=== PATIENT | male | born 1970 | race Hispanic/Latino ===

== ENCOUNTER 2018-03-10 16:24 | Inpatient (IN) | payer OTHER ==
[~2018-03-10] VITALS: Ht 167.6 cm; Wt 63.5 kg
[2018-03-10 19:04] LABS: ABSOLUTE BASOPHIL COUNT 0 /CUMM (0.0-0.2); ABSOLUTE EOSINOPHIL COUNT 0.2 /CUMM (0.0-0.7); ABSOLUTE GRANULOCYTE CT 2.1 /CUMM (1.4-6.5); ABSOLUTE LYMPH COUNT 2.8 /CUMM (1.2-3.4); ABSOLUTE MONOCYTE COUNT 0.4 /CUMM (0.10-0.60); BASOPHIL % 0.7 % (0.0-2.0); GRANULOCYTE % 38.8 % (42.2-75.2); HEMATOCRIT 42.1 % (42-52); MEAN CORPUSCULAR HGB 34.7 PG (27.0-31.0); MEAN CORPUSCULAR HGB CONC 34.2 G/DL (33.0-37.0); MEAN CORPUSCULAR VOLUME 101.4 FL (80.0-94.0); MEAN PLATELET VOLUME 8.4 FL (7.4-10.4); PLATELET COUNT 163 /CUMM (130-400); RBC DISTRIBUTION WIDTH 14.2 % (11.5-14.5); RED BLOOD CELL CT 4.15 /CUMM (4.70-6.10); WHITE BLOOD CELL COUNT 5.5 /CUMM (4.8-10.8)
[2018-03-10 19:30] VITALS: BP 136/69
--- NOTE | 2018-03-10 19:36 | ED GENERAL ADULT ---
History of Present Illness General Chief Complaint: ETOH/Drug Related Complaint Stated Complaint: ETOH DETOX Source: patient Exam Limitations: no limitations Vital Signs & Intake/Output Vital Signs & Intake/Output Vital Signs Date Time Temp Pulse Resp B/P B/P Pulse O2 O2 Flow FiO2 Mean Ox Delivery Rate 03/11 0137 Room Air 03/11 0030 97.0 76 18 118/70 03/10 2230 98.8 88 16 112/70 03/10 2230 98.8 88 16 112/70 100 Room Air 03/10 2130 98.0 78 18 111/75 03/10 2130 98.8 78 18 111/75 98 Room Air 03/10 1930 97.9 80 18 136/69 03/10 1928 Room Air Room Air 03/10 192 97.8 80 18 136/69 99 Room Air 03/10 1708 98.3 82 17 151/94 97 Room Air ED Intake and Output 03/11 0000 03/10 1200 Intake Total 0 Output Total Balance 0 Intake, Oral 0 Allergies Coded Allergies: No Known Allergies (03/10/18) Reconcile Medications Acamprosate Calcium 333 MG TABLET.DR 333 MG PO TID ALCOHOL DEPENDENCE ( Reported) Aripiprazole 10 MG TABLET 10 MG PO DAILY ATYPICAL ANTIPSYCHOTIC (Reported) Mirtazapine 15 MG TABLET 15 MG PO DAILY DEPRESSION (Reported) Prazosin HCl 1 MG CAPSULE 1 MG PO DAILY HTN (Reported) Triage Note: PT TO ED SEEKING ETOH DETOX. STATES DAILY HEAVY USE, LAST DRINK THIS AM. DENIES HX OF SEIZURE WITHDRAWAL. VITALS STABLE IN TRIAGE. ACCOMPANIED BY . DENIES SI/HI. STEADY GAIT. LUCHO HOLLAND IN TRIAGE FOR INITIAL EVAL. Triage Nurses Notes Reviewed? yes Onset: Abrupt Duration: day(s): (1), constant, continues in ED, getting worse Timing: recent history Injury Environment: home Severity: moderate, severe HPI: 48-year-old male history of alcohol dependence presents requesting alcohol detox. Patient reports he has been drinking daily for several years. He reports that he drinks up to a half gallon of vodka daily. He states his last drink was 8:30 this morning he had 2 nIPs. He states he has never detox in the past she denies a history of withdrawal seizures. He notes that he recently was involved in an IOP that he was still drinking during well. He denies suicidal or homicidal ideation. He states he is not having any hallucinations no illicit drug use. He states currently he is on taking a sleeping medication that he does not know what it is. He states he's never been admitted for alcohol dependence in the past. He has no chest pain shortness of breath or any other symptoms. He currently reports a mild headache and feels shaky. (Jaun Guzman) Past History Travel History Traveled to [place] past 21 day No Medical History Any Pertinent Medical History? see below for history Surgical History Surgical History: non-contributory Psychosocial History What is your primary language Mongolian Tobacco Use: Current Daily Use Daily Tobacco Use Amount/Type: => 5 Cigarettes daily ETOH Use: heavy use Illicit Drug Use: denies illicit drug use Family History Hx Contributory? No (Jaun Guzman) Review of Systems Review of Systems Constitutional: Reports: no symptoms. EENTM: Reports: no symptoms. Respiratory: Reports: no symptoms. Cardiovascular: Reports: no symptoms. GI: Reports: no symptoms. Genitourinary: Reports: no symptoms. Musculoskeletal: Reports: no symptoms. Skin: Reports: no symptoms. Neurological/Psychological: Reports: see HPI, anxiety, headache. Hematologic/Endocrine: Reports: no symptoms. Immunologic/Allergic: Reports: no symptoms. All Other Systems: Reviewed and Negative (Jaun Guzman) Physical Exam Physical Exam General Appearance: well developed/nourished, no apparent distress, alert, awake Head: atraumatic, normal appearance Eyes: Bilateral: normal appearance, PERRL, EOMI. Ears, Nose, Throat: hearing grossly normal Neck: normal inspection, supple, full range of motion Respiratory: normal breath sounds, chest non-tender, no respiratory distress, lungs clear Cardiovascular: regular rate/rhythm, normal peripheral pulses Peripheral Pulses: 2+ radial (R), 2+ radial (L) Gastrointestinal: soft, non-tender Back: normal inspection, normal range of motion, no vertebral tenderness Extremities: normal inspection, normal range of motion, no edema Neurologic/Psych: no motor/sensory deficits, awake, alert, oriented x 3, normal gait, normal mood/affect Skin: intact, normal color, warm/dry Lymphatic: no anterior cervical kinjal Core Measures ACS in differential dx? No CVA/TIA Diagnosis: No Sepsis Present: No Sepsis Focused Exam Completed? No (Jaun Guzman) Progress Differential Diagnoses I considered the following diagnoses in my evaluation of the patient: [Alcohol intoxication, alcohol withdrawal, drug intoxication, drug withdrawal, electrolyte abnormality] Plan of Care: Orders Procedure Date/time Status Regular Diet 03/11 B Active MAGNESIUM 03/11 06 Active CBC WITHOUT DIFFERENTIAL 03/11 06 Active BASIC ELECTROLYTES PLUS BUN&CR 03/11 0600 Active Seizure Precautions 03/11 0141 Active Weight 03/11 0133 Complete Vital Signs 03/11 0133 Active Teach/Educate 03/11 013 Active Pain Treatment and Response 03/11 013 Active Nutritional Intake, Monitor 03/11 013 Active Isolation 03/11 013 Active Intake & Output 03/11 0133 Active Patient Care Conference 03/11 0133 Active Activity/Ambulation 03/11 013 Active Saline Lock 03/11 0028 Active Misc Message 03/11 0028 Active ED Holding Orders 03/11 0028 Active Admit to inpatient 03/11 0028 Active Vital Signs 03/11 0028 Active Lab Add-on Test 03/11 0003 Active CIWA 03/11 UNK Complete SOCIAL WORK CONSULT 03/11 UNK Active Pathway - chart 03/10 2357 Active House Staff 03/10 2357 Active Code Status 03/10 2357 Active Patient Data 03/10 2350 Active Add-on Test (ER Only) 03/10 223 Active CASE MANAGEMENT CONSULT 03/10 2126 Active Intake & Output 03/10 2016 Active PHOSPHORUS 03/10 1847 Complete MAGNESIUM 03/10 1847 Complete CIWA 03/10 1708 Active URINE DRUGS OF ABUSE 03/10 1708 Complete ETHANOL 03/10 1708 Complete COMPREHENSIVE METABOLIC PANEL 03/10 1708 Complete CBC WITHOUT DIFFERENTIAL 03/10 1708 Complete VTE Mechanical Prophylaxis 03/10 UNK Active Current Medications Sig/Savita Start time Last Medication Dose Stop Time Status Admin Enoxaparin Sodium 40 MG DAILY 03/11 900 AC (Lovenox) Folic Acid 1 MG DAILY 03/11 09 AC (Folic Acid) Multivitamins 1 TAB DAILY 03/11 900 AC (Theragran Vitamins) Nicotine 14 MG DAILY 03/11 900 UNVr (Nicotine Cq) Thiamine HCl 100 MG DAILY 03/11 900 AC (Vitamin B1) Omeprazole 40 MG DAILY AC 03/11 07 UNVr (Prilosec) Lorazepam 0 Q1P PRN 03/11 0030 AC 03/11 (Ativan) 0144 Lorazepam 1 MG Q6 03/10 2359 AC 03/11 (Ativan) 0030 Acetaminophen 650 MG Q6P PRN 03/10 2345 AC (Tylenol) Magnesium Sulfate 1 GM Q2H 03/10 2345 AC 03/11 (Mag Sulfate in D5) 03/11 0344 0042 Dextrose/Water 100 ML (D5W) Laboratory Tests 03/10/18 1919: Urine Opiates Screen < 100, Methadone Screen < 40, Barbiturate Screen < 60, Ur Phencyclidine Scrn < 6.00, Amphetamines Screen 345, U Benzodiazepines Scrn < 85, Urine Cocaine Screen < 50, Urine Cannabis Screen < 5.00 03/10/18 1847: Anion Gap 10, Estimated GFR > 60, BUN/Creatinine Ratio 11.1, Glucose 93, Calcium 9.5, Phosphorus 3.5, Magnesium 1.5 L, Total Bilirubin 0.7, AST 217 H, ALT 230 H, Alkaline Phosphatase 105, Total Protein 8.2, Albumin 4.5, Globulin 3.7, Albumin/Globulin Ratio 1.2, CBC w Diff NO MAN DIFF REQ, RBC 4.15 L, MCV 101.4 H, MCH 34.7 H, MCHC 34.2, RDW 14.2, MPV 8.4, Gran % 38.8 L, Lymphocytes % 50.0 , Monocytes % 7.5, Eosinophils % 3.0, Basophils % 0.7, Absolute Granulocytes 2.1 , Absolute Lymphocytes 2.8, Absolute Monocytes 0.4, Absolute Eosinophils 0.2, Absolute Basophils 0, Serum Alcohol 52.0 Patient is here requesting alcohol detox. He states he drinks every day up to half gallon of vodka last drink was this morning. He denies a history of withdrawal seizures no suicidal or homicidal ideation. Labs were ordered patient will be monitored with CIWA exams. Blood work shows an alcohol level of 52 initial CIWA level is 2. Patient will continue to be monitored. Remaining labs otherwise unremarkable other than a mild transaminitis. Repeat CIWA is now 15. Patient meets criteria for admission. 2 mg IV Ativan 2 mg by mouth Ativan ordered. Case management will get authorization for admission. Case discussed with Dr. Ramirez he agrees. Patient was SIGNED OUT to Dr. Ramirez pending case management anD admission Initial ED EKG: none Hand-Off Endorsed To: James URRUTIA,Richie Byrd Endorsed Time: 2310 Pending: other (CASE MANAGEMENT/ADMISSION) (Jaun Guzman) Departure Departure Disposition: STILL A PATIENT Condition: Stable Clinical Impression Primary Impression: Alcohol withdrawal Qualifiers: Complication of substance-induced condition: uncomplicated Qualified Code: F10.230 - Alcohol dependence with withdrawal, uncomplicated Referrals: Mj Seymour MD (PCP/Family) Departure Forms: Customer Survey General Discharge Information Admission Note Spoke With: Monroe Syed MD Documentation of Exam: Documentation of any treatments & extenuating circumstances including Concerns Regarding Discharge (functional status, medication knowledge or non-compliance, living conditions, etc.) that warrant an admission rather than observation: [ Patient has a CIWA score of 15 require IV Ativan serial labs case management social work consult. Premature discharge could result in seizure or ] (Jaun Guzman) Admission Note Spoke With: Mj Seymour MD Documentation of Exam: dr. seymour is the patient's PMD... discussed with dr. seymour who accepts patient. PA/COTTON WEIGHER Co-Sign Statement Statement: ED Attending supervision documentation- [x] I saw and evaluated the patient. I have also reviewed all the pertinent lab results and diagnostic results. I agree with the findings and the plan of care as documented in the PA's/COTTON WEIGHER's documentation. 03/11/18, 0:52am... pt with ciwa of 15, now approved for etoh detox protocol. stable for gen med. [] I have reviewed the ED Record and agree with the PA's/COTTON WEIGHER's documentation. [] Additions or exceptions (if any) to the PAs/COTTON WEIGHER's note and plan are summarized below: [] (James URRUTIA,Richie Byrd) Critical Care Note Critical Care Note Critical Care Time: non-applicable (Jaun Guzman)
[2018-03-10 20:18] VITALS: BP 136/69
[2018-03-10 21:30] VITALS: BP 111/75
[2018-03-10] MEDS ORDERED: PRAZOSIN HCL1 M1 PO (22:25)
[2018-03-10] MEDS ORDERED: ACAMPROSATE CA333 M1 PO (22:26)
[2018-03-10] MEDS ORDERED: ARIPIPRAZOLE10 M1 PO (22:28)
[2018-03-10] MEDS ORDERED: MIRTAZAPINE15 M2 PO (22:29)
[2018-03-10 22:30] VITALS: BP 112/70
--- NOTE | 2018-03-10 23:49 | History & Physical ---
Katie Burch 03/10/18 2348: General Information and HPI MD Statement: I have seen and personally examined CORIE MENDOZA and documented this H&P. The patient is a 48 year old M who presented with a patient stated chief complaint of [alcohol detox]. Source of Information: patient Exam Limitations: no limitations History of Present Illness: 48-year-old male with past medical history of alcohol abuse, presented to the emergency department today requesting alcohol detox. The patient has been abusing alcohol for many years now his last drink was at 8: 30 AM this morning. He drank 2 pints of vodka this morning. Patient reports being detoxed for alcohol last month in [facility]. He has never been in alcohol rehab. Reports IOP for alcohol. He denies alcohol withdrawal seizures, blacking out due to alcohol, chest pain, shortness of breath, nausea, or vomiting. He denies use of other recreational drugs. Allergies/Medications Allergies: Coded Allergies: No Known Allergies (03/10/18) Home Med list Acamprosate Calcium 333 MG TABLET.DR 333 MG PO TID ALCOHOL DEPENDENCE ( Reported) Aripiprazole 10 MG TABLET 10 MG PO DAILY ATYPICAL ANTIPSYCHOTIC (Reported) Mirtazapine 15 MG TABLET 15 MG PO DAILY DEPRESSION (Reported) Prazosin HCl 1 MG CAPSULE 1 MG PO DAILY HTN (Reported) Past History Travel History Traveled to [place] past 21 day No Medical History Cardiovascular: hypertension Psychiatric: depression Surgical History Surgical History: non-contributory Past Family/Social History Psychosocial History Where do you live? Home Services at Home: None Smoking Status: Current Everyday Smoker (HALF PPD FOR 42 YEARS) ETOH Use: heavy use Illicit Drug Use: denies illicit drug use Functional Ability ADLs Independent: dressing, eating, toileting, bathing. Ambulation: independent IADLs Independent: shopping, housework, finances, food prep, telephone, transportation , medication admin. Review of Systems Review of Systems Constitutional: Reports: see HPI. EENTM: Reports: no symptoms. Cardiovascular: Reports: no symptoms. Respiratory: Reports: no symptoms. GI: Reports: no symptoms. Genitourinary: Reports: no symptoms. Musculoskeletal: Reports: no symptoms. Skin: Reports: no symptoms. Neurological/Psychological: Reports: no symptoms. Hematologic/Endocrine: Reports: no symptoms. Immunologic/Allergic: Reports: no symptoms. All Other Systems: Reviewed and Negative Exam & Diagnostic Data Last 24 Hrs of Vital Signs/I&O Vital Signs Date Time Temp Pulse Resp B/P B/P Pulse O2 O2 Flow FiO2 Mean Ox Delivery Rate 03/11 0030 97.0 76 18 118/70 03/10 2230 98.8 88 16 112/70 03/10 2230 98.8 88 16 112/70 100 Room Air 03/100 98.0 78 18 111/75 03/10 213 98.8 78 18 111/75 98 Room Air 03/10 1930 97.9 80 18 136/69 03/10 1928 Room Air Room Air 03/10 192 97.8 80 18 136/69 99 Room Air 03/10 1708 98.3 82 17 151/94 97 Room Air Intake & Output 03/11 0800 03/11 0000 03/10 1600 Intake Total 0 Output Total Balance 0 Intake, Oral 0 Physical Exam General Appearance Alert, Oriented X3, Cooperative, No Acute Distress Skin No Rashes, No Breakdown, No Significant Lesion Skin Temp/Moisture Exam: Cool/Dry Sepsis Skin Exam (color): Normal for Ethnicity HEENT Atraumatic, PERRLA, EOMI, Mucous Membr. moist/pink Neck Supple, No JVD Cardiovascular Regular Rate, Normal S1, Normal S2, No Murmurs Lungs Clear to Auscultation, Normal Air Movement Abdomen Normal Bowel Sounds, Soft, No Tenderness, No Hepatospenomegaly, No Masses Neurological Normal Gait, Normal Speech, Strength at 5/5 X4 Ext, Normal Tone, Sensation Intact, Cranial Nerves 3-12 NL Extremities TREMORS BOTH HANDS Assessment/Plan Assessment: 48-year-old male with past medical history of alcohol abuse, presented to the emergency department today requesting alcohol detox. Problems: 1.alcohol withdrawal 2.transaminitis 3.macrocytosis 4.hypomagnesemia Assessment and plan: 1.alcohol withdrawal: The patient presents with alcohol withdrawal; his last drink was 2 pens of vodka this morning at 8:30 AM. tremors were present on examination. His alcohol level is 52.0. -Admit to general medical floor -Continue Ativan -Vitals every shift -IV fluids, thiamine p.o., multivitamins p.o., folate p.o. 2.transaminitis: His ALT is 230, AST 217. Likely due to alcohol abuse. -We will monitor his lfts -Ultrasound right upper quadrant 3.hypomagnesemia: The patient's magnesium level was 1.5 on admission. -Replete magnesium by MgSO4 1 g IV -Monitor magnesium levels 4.macrocytosis: Patient's hemoglobin is 14.4, RBC count 415, MCV 101.4, MCH 34.7. Macrocytosis is most likely due to alcohol abuse. -Check vitamin B and folate levels. -Give multivitamins, folic acid DVT prophylaxis: Enoxaparin 40 mg subcu Diet: Regular diet CODE STATUS: Full code As Ranked By This Provider Problem List: 1. Alcohol withdrawal Qualifiers Complication of substance-induced condition: uncomplicated Qualified Code: F10.230 - Alcohol dependence with withdrawal, uncomplicated Core Measures/Misc (03/29) Acute Coronary Syndrome ACS Diagnosis: No Congestive Heart Failure Congestive Heart Failure Diagnosis No Cerebrovascular Accident CVA/TIA Diagnosis: No VTE (View Protocol) VTE Risk Factors Age>40 No Mechanical VTE Prophylaxis d/t N/A MechProphylax Ordered No VTE Pharm Prophylaxis d/t NA PharmProphylax ordered Sepsis (View protocol) Sepsis Present: No If YES complete Sepsis Event Note If YES complete Sepsis Event Note Monroe Syed MD 03/11/18 0008: Core Measures/Misc (03/29) Sepsis (View protocol) If YES complete Sepsis Event Note If YES complete Sepsis Event Note Attending MD Review Statement Attending Statement Attending MD Statement: examined this patient, discuss w/resident/PA/CERTIFIED LOW VISION THERAPIST, agreed w/resident/PA/CERTIFIED LOW VISION THERAPIST, reviewed EMR data (avail) Attending Assessment/Plan: 48M PMH EtOH abuse, drinks 0.5 gallons of vodka per day, presents for detox. Initially intoxicated but now only with mild tremor and agitation, CIWA 15, with impending DT's likely given volume of alcohol consumption. Normal exam other than above at this time, vitals stable, labs show only mild transaminitis. No history of withdrawal before. Plan: Admit to general medicine, Ativan 1mg q6h PO and increase as necessary, Ativan PRN CIWA, repeat LFTs, monitor electrolytes , DVT PPx. Kendall Perez MD 03/11/18 0033: Core Measures/Misc (03/29) Sepsis (View protocol) If YES complete Sepsis Event Note If YES complete Sepsis Event Note Resident Review Statement Resident Statement: examined this patient, discussed with manager internal, reviewed EMR data (avail) Other Findings: 48 yo M with PMH hisotry of alcohol dependence, current smoker (1/2 PPD for almost 40 years) presented to the ED requesting for alcohol detox. The patient states that he has been drinking a gallon of vodka of a number of years now. His last drink was 8:30 this morning when he had 2 pints of vodka. He was admitted to [facility] last month for alcohol detox. Denies any history of alcohol withdrawal seizures. Denies any recreational drug use. His only medication at home consists of a sleeping pill of which he does not recall the name. He endorses headache but denies any shortness of breath or chest pain. ROS: significant for headache and exertional chest pain General Appearance: well developed/nourished, no apparent distress Head: atraumatic, normal appearance Eyes: bilateral normal appearance, PERRL Ears, Nose, Throat: normal hearing and speech Respiratory: normal breath sounds, chest non-tender, no respiratory distress Cardiovascular: regular rate/rhythm, normal S1, S2, no M/R/G Gastrointestinal: soft, non-tender Extremities: no edema Neurologic/Psych: awake, alert, oriented x 3, Skin: intact, normal color, warm/dry Labs are remarkable for macrocytosis (MCV 101.4), low magnesium and elevated AST /ALT. Blood alcohol level was 52. Assessment: 1. Alcohol Detox 2. Elevated LFTs Plan: * Admit patient to general medicine * Start PO Ativan 1mg q6 and IV Ativan per CIWA. Will taper Ativan rapidly. * Thiamine, Folic acid, Multivitamin * Monitor electrolytes and replete as needed * PO PPI * Nicotine patch * Social work consult * Diet: Regular * DVT Prophylaxis: SC Lovenox * Code: Full Code
[2018-03-11] VITALS (8 sets, daily range): BP systolic 92–146; BP diastolic 60–87
--- NOTE | 2018-03-11 07:25 | PN- Housestaff ---
Subjective Follow-up For: Alcohol detox Subjective: Patient seen and examined at bedside. He is complaining of tremor in hands. He said this is second time I am trying alcohol detox. Previously I was admitted to [facility] and I again left hospital AGAINST MEDICAL ADVICE and escape through the window. He denies fever, palpitation, chest pain, abdominal pain, diarrhea, constipation, burning micturition, numbness, tingling sensation in hands and feet. Review of Systems Constitutional: Reports: see HPI. Objective Last 24 Hrs of Vital Signs/I&O Vital Signs Date Time Temp Pulse Resp B/P B/P Pulse O2 O2 Flow FiO2 Mean Ox Delivery Rate 03/11 1437 98.2 74 18 118/76 97 Room Air 03/11 1052 98.5 83 18 92/60 96 Room Air 03/11 0700 98.4 66 18 110/68 97 Room Air 03/11 0203 98.1 73 20 122/80 96 03/11 0137 Room Air 03/11 0030 97.0 76 18 118/70 03/10 2230 98.8 88 16 112/70 03/10 2230 98.8 88 16 112/70 100 Room Air 03/10 2130 98.0 78 18 111/75 03/10 2130 98.8 78 18 111/75 98 Room Air 03/10 1930 97.9 80 18 136/69 03/10 1928 Room Air Room Air 03/10 1928 97.8 80 18 136/69 99 Room Air Intake & Output 03/11 1600 03/11 0800 03/11 0000 Intake Total 500 480 0 Output Total Balance 500 480 0 Intake, IV 0 Intake, Oral 500 480 0 Patient 140 lb Weight Weight Reported by Patient Measurement Method Physical Exam General Appearance: Alert, Oriented X3, Cooperative, No Acute Distress, Mild Distress, Moderate Distress, Severe Distress HEENT: Atraumatic, PERRLA, EOMI, Mucous Membr. moist/pink Neck: Supple, No JVD, No thryomegaly Lymphatic: Axillary nl, Cervical nl Cardiovascular: Normal S1, Normal S2, No Murmurs Lungs: Clear to Auscultation, Normal Air Movement Abdomen: Normal Bowel Sounds, Soft, No Tenderness, No Hepatospenomegaly, No Masses Neurological: Normal Gait, Normal Speech, Strength at 5/5 X4 Ext, Normal Tone, Sensation Intact, Cranial Nerves 3-12 NL, Reflexes 2+ Extremities: No Clubbing, No Cyanosis, No Edema, Normal Pulses, No Tenderness/ Swelling Assessment/Plan Assessment: 48M PMH EtOH abuse, drinks 0.5 gallons of vodka per day, presents for detox. Initially intoxicated but now only with mild tremor and agitation, CIWA 15, with impending DT's likely given volume of alcohol consumption. Admits to emergency for alcohol detox. At the time of presentation to emergency department labs are given below. Labs; WBC 3.9, hemoglobin 14.1, hematocrit 41, MCV 100.8, RDW 14.6, platelet 144 , sodium 136, potassium 3.6, chloride 102, CO2 25, Problems list: -Alcohol withdrawal -Transaminitis -Macrocytosis -Hypomagnesemia *Alcohol withdrawal: -The patient is here for alcohol detox -He had a failed attempt of alcohol withdrawal at [facility] -He escaped from hospital by window AGAINST MEDICAL ADVICE -On examination there was tremor -His alcohol level was 52 -Seizure protocol -tablet ativan -IV fluid, thiamine, B12, multivitamins Transaminitis: His ALT is 230, AST 217. Likely due to alcohol abuse. -We will monitor his lfts hypomagnesemia: The patient's magnesium level was 1.5 on admission. -Replete magnesium by MgSO4 1 g IV -Monitor magnesium levels 4.macrocytosis: Patient has a macrocytosis in the setting of normal hemoglobin -Macrocytosis most likely due to alcohol -We will start multivitamin, folic acid, B12 -We will check B12, folate level DVT prophylaxis: Enoxaparin 40 mg subcu Diet: Regular diet CODE STATUS: Full code Problem List: 1. Alcohol withdrawal Pain Ratin Pain Location: No pain Pain Goal: Remain pain free Pain Plan: No pain Tomorrow's Labs & Rationales: No labs
[2018-03-11 08:49] LABS: ABSOLUTE BASOPHIL COUNT 0 /CUMM (0.0-0.2); ABSOLUTE EOSINOPHIL COUNT 0.2 /CUMM (0.0-0.7); ABSOLUTE GRANULOCYTE CT 1.7 /CUMM (1.4-6.5); ABSOLUTE LYMPH COUNT 1.6 /CUMM (1.2-3.4); ABSOLUTE MONOCYTE COUNT 0.4 /CUMM (0.10-0.60); BASOPHIL % 0.8 % (0.0-2.0); EOSINOPHIL % 4.4 % (0-5); GRANULOCYTE % 42.9 % (42.2-75.2); MEAN CORPUSCULAR HGB 34.6 PG (27.0-31.0); MEAN CORPUSCULAR HGB CONC 34.4 G/DL (33.0-37.0); MEAN CORPUSCULAR VOLUME 100.8 FL (80.0-94.0); MEAN PLATELET VOLUME 9.3 FL (7.4-10.4); PLATELET COUNT 144 /CUMM (130-400); RBC DISTRIBUTION WIDTH 14.6 % (11.5-14.5); RED BLOOD CELL CT 4.07 /CUMM (4.70-6.10); WHITE BLOOD CELL COUNT 3.9 /CUMM (4.8-10.8)
--- NOTE | 2018-03-11 10:44 | Admission Certification ---
Admission Certification Certification Statement - As attending physician, I certify that at the time of - admission, based on clinical presentation, severity of - symptoms, need for further diagnostic testing and - therapeutic interventions, and risk of adverse outcomes - without in-hospital treatment, in my clinical assessment, - this patient requires an acute hospital stay for a minimum - of two nights or longer. I have also considered psychsocial - factors such as support system, advanced age, financial - issues, cognitive issues, and failed out-patient treatments, - past re-admission history, safety of patient, and lack of - compliance as applicable. Specific rationale supporting this admission is: Alcohol excess, alcohol withdrawal abnormal liver function test and hypomagnesemia
--- NOTE | 2018-03-11 10:47 | PN- Att Addend ---
Attending Addendum Attending Brief Note 48-year-old male just started coming to my office recently has had history of alcohol excess for many years drinks up to 2 pints of vodka a day. Had a recent detox in [place]. Comes in requesting detox again and is in alcohol withdrawal pretty shaky. With high alcohol levels and 1 of the CIWA levels of 15. He got IV Ativan with some improvement of symptoms. Patient is admitted for evaluation, treatment, geriatric social work professor input and make arrangements for him to go to the program. 24 TOTALS 03/11 0000 03/10 0000 Intake Total 0 Output Total Balance 0 Intake, Oral 0 Current Medications Sig/Savita Start time Last Medication Dose Route Stop Time Status Admin Acetaminophen 650 MG Q6P PRN 03/10 2345 AC PO Enoxaparin Sodium 40 MG DAILY 03/11 900 AC SC Folic Acid 1 MG DAILY 03/11 0900 AC 03/11 PO 0816 Lorazepam 0 Q1P PRN 03/11 0030 AC 03/11 IV 0144 Lorazepam 0 .STK-MED ONE 03/11 0026 DC PO Lorazepam 1 MG Q6 03/10 2359 AC 03/11 PO 0535 Lorazepam 0 .STK-MED ONE 03/10 2152 DC .ROUTE Lorazepam 0 .STK-MED ONE 03/10 2151 DC PO Lorazepam 2 MG ONE ONE 03/10 2145 DC 03/10 IV 03/106 2203 Lorazepam 2 MG ONCE ONE 03/10 2145 DC 03/10 PO 03/10 2146 2203 Magnesium Sulfate 1 GM Q2H 03/10 2345 DC 03/11 Dextrose/Water 100 ML IV 03/11 0344 0419 Multivitamins 1 TAB DAILY 03/11 09 AC 03/11 PO 0816 Multivitamins 1 TAB ONCE ONE 03/10 2315 DC 03/11 Therapeutic PO 03/10 2316 0010 Nicotine 14 MG DAILY 03/11 900 AC 03/11 TOP 0816 Omeprazole 40 MG DAILY AC 03/11 0700 AC 03/11 PO 0535 Thiamine HCl 100 MG DAILY 03/11 0900 AC 03/11 PO 0816 Laboratory Tests 03/11/18 0650: Anion Gap 9, Estimated GFR > 60, BUN/Creatinine Ratio 15.0, Magnesium 2.2, CBC w Diff NO MAN DIFF REQ, RBC 4.07 L, MCV 100.8 H, MCH 34.6 H, MCHC 34.4, RDW 14.6 H, MPV 9.3, Gran % 42.9, Lymphocytes % 41.2, Monocytes % 10.7 H, Eosinophils % 4.4, Basophils % 0.8, Absolute Granulocytes 1.7, Absolute Lymphocytes 1.6, Absolute Monocytes 0.4, Absolute Eosinophils 0.2, Absolute Basophils 0 03/10/181918: Urine Opiates Screen < 100, Methadone Screen < 40, Barbiturate Screen < 60, Ur Phencyclidine Scrn < 6.00, Amphetamines Screen 345, U Benzodiazepines Scrn < 85, Urine Cocaine Screen < 50, Urine Cannabis Screen < 5.00 03/10/18 184: Anion Gap 10, Estimated GFR > 60, BUN/Creatinine Ratio 11.1, Glucose 93, Calcium 9.5, Phosphorus 3.5, Magnesium 1.5 L, Total Bilirubin 0.7, AST 217 H, ALT 230 H, Alkaline Phosphatase 105, Total Protein 8.2, Albumin 4.5, Globulin 3.7, Albumin/Globulin Ratio 1.2, CBC w Diff NO MAN DIFF REQ, RBC 4.15 L, MCV 101.4 H, MCH 34.7 H, MCHC 34.2, RDW 14.2, MPV 8.4, Gran % 38.8 L, Lymphocytes % 50.0 , Monocytes % 7.5, Eosinophils % 3.0, Basophils % 0.7, Absolute Granulocytes 2.1 , Absolute Lymphocytes 2.8, Absolute Monocytes 0.4, Absolute Eosinophils 0.2, Absolute Basophils 0, Serum Alcohol 52.0 Vital Signs Date Time Temp Pulse Resp B/P B/P Pulse O2 O2 Flow FiO2 Mean Ox Delivery Rate 03/11 0700 98.4 66 18 110/68 97 Room Air 03/11 0203 98.1 73 20 122/80 96 03/11 0137 Room Air 03/11 0030 97.0 76 18 118/70 03/10 2230 98.8 88 16 112/70 03/10 2230 98.8 88 16 112/70 100 Room Air 03/10 2130 98.0 78 18 111/75 03/10 2130 98.8 78 18 111/75 98 Room Air 03/10 1930 97.9 80 18 136/69 03/108 Room Air Room Air 08/29 1928 97.8 80 18 136/69 99 Room Air 03/10 1708 98.3 82 17 151/94 97 Room Air
--- NOTE | 2018-03-11 12:41 | Event Note ---
Event Note Event Note: Nurse text page me this morning that patient denoying blood thinner enoxoparin. patient admitted her for alcohol detox ..
[2018-03-12 02:05] VITALS: BP 127/75
[2018-03-12 06:00] VITALS: BP 112/62
--- NOTE | 2018-03-12 06:53 | PN- Housestaff ---
Subjective Follow-up For: Alcohol detox Subjective: Patient seen and examined at bedside. He is oriented in time place person . He is complaining mild tremors. He got a good night sleep. He denies fever, chills, shortness of breath, chest pain, palpitation, abdominal pain, diarrhea, constipation, burning micturition Review of Systems Constitutional: Reports: see HPI. Objective Last 24 Hrs of Vital Signs/I&O Vital Signs Date Time Temp Pulse Resp B/P B/P Pulse O2 O2 Flow FiO2 Mean Ox Delivery Rate 03/12 0600 98.0 62 20 112/62 98 Room Air 03/12 0205 98.0 78 20 127/75 97 Room Air 03/11 2200 99.1 68 18 146/87 03/11 2152 98.1 68 18 146/87 97 03/11 1842 98.4 86 20 127/86 98 Room Air 03/11 1437 98.2 74 18 118/76 97 Room Air 03/11 1052 98.5 83 18 92/60 96 Room Air Intake & Output 03/12 1600 03/12 0800 03/12 0000 Intake Total 480 410 Output Total 500 Balance -20 410 Intake, IV 10 Intake, Oral 480 400 Output, Urine 500 Physical Exam General Appearance: Alert, Oriented X3, Cooperative, No Acute Distress Skin: No Rashes, No Breakdown HEENT: Atraumatic, PERRLA, EOMI, Mucous Membr. moist/pink Neck: Supple, No JVD, No thryomegaly, +2 Carotid Pulse wo Bruit Lymphatic: Axillary nl, Cervical nl Cardiovascular: Regular Rate, Normal S1, Normal S2 Lungs: Clear to Auscultation, Normal Air Movement Abdomen: Normal Bowel Sounds, Soft Assessment/Plan Assessment: 48M PMH EtOH abuse, drinks 0.5 gallons of vodka per day, presents for detox. Initially intoxicated but now only with mild tremor and agitation, CIWA 15, with impending DT's likely given volume of alcohol consumption. Admits to emergency for alcohol detox. At the time of presentation to emergency department labs are given below. Labs; WBC 3.9, hemoglobin 14.1, hematocrit 41, MCV 100.8, RDW 14.6, platelet 144 , sodium 136, potassium 3.6, chloride 102, CO2 25, Problems list: -Alcohol withdrawal -Transaminitis -Macrocytosis -Hypomagnesemia *Alcohol withdrawal: -The patient is here for alcohol detox -He had a failed attempt of alcohol withdrawal at [facility] -He escaped from hospital AGAINST MEDICAL ADVICE -On examination there was tremor -His alcohol level was 52 -Seizure protocol -tablet ativan 0.5 mg daily -IV fluid, thiamine, B12, multivitamins -break up worker contacted patient. -She fixed an appointment for him Transaminitis: His ALT is 230, AST 217. Likely due to alcohol abuse. -We will monitor his lfts hypomagnesemia: The patient's magnesium level was 1.5 on admission. -Replete magnesium by MgSO4 1 g IV -Monitor magnesium levels 4.macrocytosis: Patient has a macrocytosis in the setting of normal hemoglobin -Macrocytosis most likely due to alcohol -We will start multivitamin, folic acid, B12 -We will check B12, folate level -We will be discharged today DVT prophylaxis: Enoxaparin 40 mg subcu Diet: Regular diet CODE STATUS: Full code Problem List: 1. Alcohol withdrawal Pain Ratin Pain Location: No pain Pain Goal: Remain pain free Pain Plan: Pain management pathway Tomorrow's Labs & Rationales: No labs
[2018-03-12 08:00] VITALS: BP 110/70
--- NOTE | 2018-03-12 08:14 | Patient Discharge Instructions ---
Discharge Instructions General Discharge Information Special Instructions: - Please follow up with your primary care physician within 1-2 weeks of discharge. Inform your primary care physician of this admission to . - Continue your current medications per discharge instructions. - Please watch for these problems: Fever, Chills, Nausea, Vomiting, Shortness of Breath, Productive Cough, Chest Pain/Discomfort, Abdominal Pain, Active Bleeding or Bloody urine/stool. Diet Continue normal diet: Yes Activity Full Activity/No Limits: Yes Acute Coronary Syndrome Inclusion Criteria At DC or during hospital stay patient has or had the following: ACS DIAGNOSIS No Discharge Core Measures Meds if any: Prescribed or Continued at Discharge Meds if any: NOT Prescribed or Continued at Discharge Congestive Heart Failure Inclusion Criteria At DC or during hospital stay patient has or had the following: CHF DIAGNOSIS No Discharge Core Measures Meds if any: Prescribed or Continued at Discharge Meds if any: NOT Prescribed or Continued at Discharge Cerebrovascular accident Inclusion Criteria At DC or during hospital stay patient has or had the following: CVA/TIA Diagnosis No Discharge Core Measures Meds if any: Prescribed or Continued at Discharge Meds if any: NOT Prescribed or Continued at Discharge Venous thromboembolism Inclusion Criteria VTE Diagnosis No VTE Type NONE VTE Confirmed by (Test) NONE Discharge Core Measures - Per Current guidelines, there needs to be overlap - treatment for the first 5 days of Warfarin therapy. - If discharged on Warfarin prior to 5 days of - overlap therapy, the patient will need to be - assessed for post discharge needs including - *Post discharge parental anticoagulation - *Warfarin and/or parental anticoagulation education - *Follow up date to check INR post discharge At least 5 days overlap therapy as Inpatient No Meds if any: Prescribed or Continued at Discharge Note: Overlap Therapy is Warfarin and Anticoagulant Meds if any: NOT Prescribed or Continued at Discharge
[2018-03-12 10:00] VITALS: BP 110/70
--- NOTE | 2018-03-12 13:20 | PN- Att Addend ---
Attending Addendum Attending Brief Note Looking and feeling better. In Bed No Tremors. Alert and Oriented x3. Vital signs are stable no fever. No new changes on physical examination. Following protocol. Tapering the benzodiazepines. If stable switch to p.o. meds in the a.m. and started disposition plans. Also have social worker masters see the patient for future plans Intake & Output 03/12 1600 03/12 0400 03/11 1600 03/11 0400 03/10 1600 03/10 0400 Intake Total 480 410 980 0 Output Total 500 Balance -20 410 980 0 Intake, IV 10 0 Intake, Oral 480 400 980 0 Output, Urine 500 Patient 140 lb Weight Weight Reported by Patient Measurement Method Current Medications Sig/Savita Start time Last Medication Dose Route Stop Time Status Admin Acetaminophen 650 MG Q6P PRN 03/10 2345 AC 03/11 PO 1054 Enoxaparin Sodium 40 MG DAILY 03/11 09 AC 03/12 SC 0831 Folic Acid 1 MG DAILY 03/11 09 AC 03/12 PO 0830 Lorazepam 0.5 MG DAILY 03/14 09 AC PO 03/14 0901 Lorazepam 0.5 MG BID 03/13 09 AC PO 03/13 2101 Lorazepam 0.5 MG Q6 03/11 2359 AC 03/12 PO 03/12 1801 1158 Lorazepam 0 Q1P PRN 03/11 0030 AC 03/11 IV 0144 Lorazepam 1 MG Q6 03/10 2359 DC 03/11 PO 03/11 1801 1825 Melatonin 3 MG AT BEDTIME 03/11 2100 AC 03/11 PO 2109 Multivitamins 1 TAB DAILY 03/11 09 AC 03/12 PO 0830 Nicotine 14 MG DAILY 03/11 0900 AC 03/12 TOP 0830 Omeprazole 40 MG DAILY AC 03/11 0700 AC 03/12 PO 0534 Patient Medication 1 ED ONE ONE 03/12 1315 HI Teaching ED 03/12 1316 Patient Medication 1 ED ONE ONE 03/11 1515 [facility] ED 03/11 1516 Thiamine HCl 100 MG DAILY 03/11 0900 03/12 PO 0830 Laboratory Tests 03/12/18 0611: Vitamin B12 521 03/12/18 0611: RBC Folate Pending 03/11/18 1000: Vitamin B12 Cancelled 03/11/18 0650: Anion Gap 9, Estimated GFR > 60, BUN/Creatinine Ratio 15.0, Magnesium 2.2, CBC w Diff NO MAN DIFF REQ, RBC 4.07 L, MCV 100.8 H, MCH 34.6 H, MCHC 34.4, RDW 14.6 H, MPV 9.3, Gran % 42.9, Lymphocytes % 41.2, Monocytes % 10.7 H, Eosinophils % 4.4, Basophils % 0.8, Absolute Granulocytes 1.7, Absolute Lymphocytes 1.6, Absolute Monocytes 0.4, Absolute Eosinophils 0.2, Absolute Basophils 0 03/10/181918: Urine Opiates Screen < 100, Methadone Screen < 40, Barbiturate Screen < 60, Ur Phencyclidine Scrn < 6.00, Amphetamines Screen 345, U Benzodiazepines Scrn < 85, Urine Cocaine Screen < 50, Urine Cannabis Screen < 5.00 03/10/181846: Anion Gap 10, Estimated GFR > 60, BUN/Creatinine Ratio 11.1, Glucose 93, Calcium 9.5, Phosphorus 3.5, Magnesium 1.5 L, Total Bilirubin 0.7, AST 217 H, ALT 230 H, Alkaline Phosphatase 105, Total Protein 8.2, Albumin 4.5, Globulin 3.7, Albumin/Globulin Ratio 1.2, CBC w Diff NO MAN DIFF REQ, RBC 4.15 L, MCV 101.4 H, MCH 34.7 H, MCHC 34.2, RDW 14.2, MPV 8.4, Gran % 38.8 L, Lymphocytes % 50.0 , Monocytes % 7.5, Eosinophils % 3.0, Basophils % 0.7, Absolute Granulocytes 2.1 , Absolute Lymphocytes 2.8, Absolute Monocytes 0.4, Absolute Eosinophils 0.2, Absolute Basophils 0, Serum Alcohol 52.0 Vital Signs Date Time Temp Pulse Resp B/P B/P Pulse O2 O2 Flow FiO2 Mean Ox Delivery Rate 03/12 1000 98.8 85 18 110/70 97 Room Air 03/12 0800 98.8 85 18 110/70 03/12 0600 98.0 62 20 112/62 98 Room Air 03/12 0205 98.0 78 20 127/75 97 Room Air 03/11 2200 99.1 68 18 146/87 03/11 2152 98.1 68 18 146/87 97 03/11 1842 98.4 86 20 127/86 98 Room Air 03/11 1437 98.2 74 18 118/76 97 Room Air
[2018-03-12 14:26] VITALS: BP 116/72
--- NOTE | 2018-03-12 14:36 | Event Note ---
Event Note Event Note: Patient requested to leave without finishing up the whole taper, without any specific complaint at the moment. Patient's CIWA has been scoring low and was not requiring any extra IV ativan over the last 24hours. He fully understood the risk of not finishing his ativan taper in hospital which involves risk of DT and benzodiazepam withdrawal, etc. Discussed the case with the attending, agree to discharge.
== END 2018-03-12 15:15 | DRG 775 ==
LOC: ERH 16:24 → 2NB 03-11 00:28 → ERHI 03-11 00:28 → ENRESERV 03-11 00:45 → 2NB 03-11 01:29
PROVIDERS: Internal Medicine; Physician Assistant Medical
DX: F10.239 Alcohol dependence with withdrawal, unspecified (principal); I10 Essential (primary) hypertension; E83.42 Hypomagnesemia; R74.0 Nonspecific elevation of levels of transaminase and lactic acid dehydrogenase [LDH]; D75.89 Other specified diseases of blood and blood-forming organs; R94.5 Abnormal results of liver function studies; F17.200 Nicotine dependence, unspecified, uncomplicated
CPT/HCPCS: 2NBSP; 36592; 80307; 82436; 96374; 96375; G0480; J1650; J3490